=== PATIENT | female | born 1945 | race Caucasian/White ===

== ENCOUNTER 2017-10-12 11:30 | Outpatient (CLI) | payer MEDICARE ==
[~2017-10-12] VITALS: Ht 157.5 cm; Wt 62.7 kg
--- NOTE | ~2017-10-12 | HEMODYNAMI ---
PATIENT:MELL ALFARO MEDICAL RECORD: [id number] : 49 LOCATION:[facility] ADMISSION DATE: 10/12/17 Generatedon:10/12/201713:50 Patient name: MELL ALFARO Patient #: [id number] SSN: [id number] : 1945 Date of study: 10/12/2017 Page: Of Hemodynamic Procedure Report Patient Data Patient Demographics Procedure consent was obtained First Name: MELL Gender: Female Last Name: DOMINIC : 1945 Middle Initial: CEASAR Age: 72 year(s) Patient #: [id number] Race: SSN: [id number] Additional ID: [id number] Contact details Address: [address] [place] [address] [address]REET State: [place] City: [place] Zip code: [address] Admission Admission Data Admission Date: 10/12/2017 Admission Time: 11:30 Arrival Date: 10/12/2017 Arrival Time: 13:30 Admit Source: Other Insurance Payor: Medicare Height (in.): 61 BSA: 1.64 (m2) Height (cm.): 154.94 BMI: 27.21 (kg/m2) Weight (lbs.): 144 Weight (kg.): 65.32 Procedure Procedure Types Cath Procedure Diagnostic Procedure [facility] w/Coronaries Sedation Charges Moderate Sedation up to 30 minutes PCI Procedure Coronary Stent Coronary Stent Initial Procedure Description Procedure Date Procedure Date: 10/12/2017 Procedure Start Time: 13:14 Procedure End Time: 13:46 Procedure Staff Name Function Hiren Trent MD Performing Physician Javy Parker RN Nurse Bridget Haider RT Scrub Magdalena Mathews RT Monitor Procedure Data Cath Procedure Fluoroscopy Diagnostic fluoroscopy Total fluoroscopy Time: 5.5 time: 5.5 min min Diagnostic fluoroscopy Total fluoroscopy dose: 818 dose: 818 mGy mGy Contrast Material Contrast Material Type Amount (ml) Isovue 300 127 Entry Location Entry Primary Successful Side Size Upsize Upsize Entry Closure Succes sful Closure Location (Fr) 1 (Fr) 2 (Fr) Remarks Device Remarks Femoral Right 5 Fr 6 Fr Exoseal artery Short Estimated blood loss: 5 ml Procedure Complications No complications Procedure Medications Medication Administration Route Dosage Oxygen etCO2 Nasal cannula 2 l/min Heparin Flush Bag added to field 2 bags (1000units/500ml NS) 0.9% NaCl I.V. ml/hr Radial Cocktail added to field 1 syringe (Verapomil 2mg/Nitro 400mcg/Heparin 1500units) Fentanyl I.V. 50 mcg Versed I.V. 1 mg Fentanyl I.V. 50 mcg Versed I.V. 1 mg Heparin Bolus I.V. 6000 units Nitroglycerin IC/IA I.C. 100 mcg Fentanyl I.V. 50 mcg Brilinta P.O. 180 mg Fentanyl I.V. 50 mcg Hemodynamics Rest BSA: 1.64 (m2) O2 Consumption: Estimated: 157.02 (ml/min) O2 Consumption indexed : Estimated:95.74 (ml/min/m) Heart Rate: 79 (bpm) Pressure Samples Time Site Value (mmHg) Purpose Heart Use Rate(bpm) 13:25 LV 150/47,41 Snapshot 76 13:25 LV 150/-11,4 Snapshot 78 13:25 AO 130/48(82) Pullback 75 13:25 LV 128/-12,-2 Pullback 75 Gradients Valve Time Site 1 Site 2 Mean SEP/DFP Peak To Heart Use (mmHg) (sec/min) Peak Rate (mmHg) (bpm) Aortic 13:25 LV AO 0 7 0 75 128/-12,-2 130/48(82) Calculations Valve P-P Mean Valve Index Valve Source Name Gradient Area Flow (cm2) Aortic 0 0 0 0 Snapshots Pre Cath Intra NCS Post Cath Vital Signs Time Heart Resp SPO2 etCO2 NIBP (mmHg) Rhythm Pain Sedation Rate (ipm) (%) (mmHg) Status Level (bpm) 13:03:04 81 17 96 0 152/81(121) NSR 0 (11) 10(A) , No pain 13:07:22 82 16 97 30.6 146/76(111) NSR 0 (11) 10(A) , No pain 13:11:39 76 17 94 23.8 132/71(104) NSR 0 (11) 10(A) , No pain 13:15:51 77 17 95 34.3 127/72(96) NSR 0 (11) 10(A) , No pain 13:21:00 73 16 92 11.2 131/63(92) NSR 0 (11) 9(A) , No pain 13:25:14 77 17 95 32.8 130/65(100) NSR 0 (11) 9(A) , No pain 13:29:28 78 17 96 33.5 142/65(103) NSR 0 (11) 9(A) , No pain 13:33:44 76 17 96 37.2 144/70(109) NSR 0 (11) 9(A) , No pain 13:38:04 79 17 94 36.5 124/62(96) NSR 0 (11) 9(A) , No pain 13:42:14 80 16 95 35 139/68(104) NSR 0 (11) 9(A) , No pain 13:46:28 81 18 96 30.6 144/75(95) NSR 0 (11) 10(A) , No pain Medications Time Medication Route Dose Verified Delivered Reason Not es Effectiveness by by 13:08:14 Oxygen etCO2 2 l/min Hiren Javy Per physician Nasal Twan Parker RN cannula 13:08:23 Heparin Flush added 2 bags Hiren Javy used for Bag to Twan Parker RN procedure (1000units/500ml field NS) 13:08:29 0.9% NaCl I.V. ml/hr Hiren Javy Per physician Twan Parker RN 13:08:37 Radial Cocktail added 1 Hiren Javy used for (Verapomil to syringe Twan Parker RN procedure 2mg/Nitro field 400mcg/Heparin 1500units) 13:10:42 Fentanyl I.V. 50 mcg Hiren Javy for sedation Twan Parker RN 13:10:49 Versed I.V. 1 mg Hiren Javy for sedation Twan Parker RN 13:17:20 Fentanyl I.V. 50 mcg Hiren Javy for sedation Twan Parker RN 13:24:00 Versed I.V. 1 mg Hiren Javy for sedation Twan Parker RN 13:34:20 Heparin Bolus I.V. 6000 Hiren Javy for units Twan Parker RN anticoagulation 13:34:35 Nitroglycerin I.C. 100 mcg Hiren Hiren for IC/IA Twan Trent MD vasodilation 13:36:05 Fentanyl I.V. 50 mcg Hiren Javy for sedation Tawn Parker RN 13:39:29 Fentanyl I.V. 50 mcg Hiren Javy for sedation Twan Parker RN 13:45:57 Brilinta P.O. 180 mg Hiren Javy for Twan Parker RN antiplatelet therapy Procedure Log Time Note 12:36:01 Diagnostic Cath Status : Elective 12:40:18 Bridget Haidre RT(R) sent for patient. Start room use. 12:40:19 Time tracking: Regular hours (M-F 7:00 - 5:00) 12:40:24 Plan of Care:Hemodynamics will remain stable., Cardiac rhythm will remain stable., Comfort level will be maintained., Respiratory function will remain adequate., Patient/ family verbilizes understanding of procedure., Procedure tolerated without complication., Recovers from procedure without complications.. 12:42:01 Informed consent obtained and on chart 12:42:11 Admit Source: Other 12:42:13 Arrival Date: 10/12/2017 1:30:00 PM 12:42:16 Insurance Payor : Medicare 12:42:23 Patient Height : 61 inches 12:42:26 Patient Weight : 144 lbs 13:01:52 Vital chart was started 13:05:39 ECG and BP/O2 sat monitors applied to patient. 13:05:44 Patient received from Pre/Post Procedure Room to [facility] 2 Alert and oriented. Tansferred to table in Supine position. 13:05:45 Warm blankets applied, and merrick hugger turned on for patient comfort. 13:05:45 Correct patient and procedure confirmed by team. 13:05:46 Baseline sample Acquired. 13:05:50 Rhythm: sinus rhythm 13:05:52 Full Disclosure recording started 13:05:56 H&P Date Dictated: 10/12/2017 Within 30 days and on chart., H&P Addendum completed by physician on day of procedure. (MUST COMPLETE FOR ALL OUTPATIENTS). 13:05:57 Pre-procedure instructions explained to patient. 13:05:58 Pre-op teaching completed and patient verbalized understanding. 13:06:02 Family in waiting room. 13:06:04 Patient NPO since Midnight. 13:06:07 Is the patient allergic to Iodine/contrast media? No. 13:06:08 Was the patient premedicated? No 13:06:11 Is patient on blood thinner?No 13:06:12 Patient diabetic? Yes. 13:06:15 Previous problem with sedation/anesthesia? No ? 13:06:24 Snore? Yes 13:06:33 If diabetic: On Metformin? Yes 13:06:38 If on Metformin: Last Dose? 10/10/2017 13:06:44 Sleep apnea? No 13:06:45 Deviated septum? No 13:06:46 Opens mouth fully? Yes 13:06:46 Sticks out tongue? Yes 13:06:48 Airway obstruction? No ? 13:06:52 Dentures? No ? 13:06:56 Pre procedure: right dorsailis pedis pulse 2+ Normal; easily identifiable; not easily obliterated 13:06:58 Pre procedure: left dorsailis pedis pulse 2+ Normal; easily identifiable; not easily obliterated 13:07:00 Patient pain scale 0/10 ?. 13:07:07 IV patent on arrival in left forearm with 0.9% NaCl at [facility]. 13:07:10 Lab results completed and on chart. 13:07:14 Right Radial & Right Groin area was prepped with chlora-prep and draped in sterile fashion 13:07:15 Alarms reviewed by R. N. 13:07:15 Sharps counted by scrub and verified by R.N. 13:07:17 Physician arrived 13:07:17 --------ALL STOP TIME OUT------ 13:07:18 Final Timeout: patient, procedure, and site verified with staff and physician. All members of the team are in agreement. 13:07:20 Right Radial & Right Groin site verified by team. 13:07:23 Physical assessment completed. ASA score P 2 - A patient with mild systemic disease as per Hiren Trent MD. 13:07:27 Sedation plan: IV Moderate Sedation Medication:Versed, Fentanyl 13:07:43 Use device set Radial Dx or PCI 13:07:44 ACIST Syringe (16957) opened to sterile field. 13:07:45 Medline Cath Pack ([id number]) opened to sterile field. 13:07:45 Bag Decanter (2001S) opened to sterile field. 13:07:45 DIAGNOSTIC WIRE .035 260cm J wire (087406) opened to sterile field. 13:07:46 ACIST Hand Control (47889) opened to sterile field. 13:07:46 ACIST Manifold (09833) opened to sterile field. 13:07:48 MBrace Wrist Support ([id number]) opened to sterile field. 13:07:49 Tegaderm 4 x 4 (1626W) opened to sterile field. 13:07:50 SHEATH 6Fr Prelude Radial ([id number]) opened to sterile field. 13:08:14 Oxygen 2 l/min etCO2 Nasal cannula was administered by Javy Parker RN; Per physician; 13:08:23 Heparin Flush Bag (1000units/500ml NS) 2 bags added to field was administered by Javy Parker RN; used for procedure; 13:08:29 0.9% NaCl ml/hr I.V. was administered by Javy Parker RN; Per physician; 13:08:37 Radial Cocktail (Verapomil 2mg/Nitro 400mcg/Heparin 1500units) 1 syringe added to field was administered by Javy Parker RN; used for procedure; 13:10:42 Fentanyl 50 mcg I.V. was administered by Javy Parker RN; for sedation; 13:10:49 Versed 1 mg I.V. was administered by Javy Parker RN; for sedation; 13:12:55 Procedure started. 13:14:38 Local anesthetic to right radial artery with Lidocaine 2% by Hiren Trent MD.INITIAL ACCESS ONLY 13:16:58 SHEATH 5Fr Prelude ([id number]) opened to sterile field. 13:17:20 Fentanyl 50 mcg I.V. was administered by Javy Parker RN; for sedation; 13:17:20 Local anesthetic to right femoral artery with Lidocaine 2% by Hiren Trent MD.ADDITIONAL ACCESS 13:17:28 A 5 Fr sheath was inserted into the Right Femoral artery 13:18:07 DIAGNOSTIC Multipack 5Fr catheter set (KZ8778) opened to sterile field. 13:18:17 5 Fr jl 4 guide catheter was inserted over the wire 13:18:59 LCA angiography performed. 13:19:02 Injector settings: Ml/sec: 3, Volume: 6, 13:21:43 Catheter removed. 13:22:23 5 Fr 3drc guide catheter was inserted over the wire 13:23:57 RCA angiography performed. 13:24:00 Versed 1 mg I.V. was administered by Javy Parker RN; for sedation; 13:24:00 Injector settings: Ml/sec: 3, Volume: 6, 13:24:08 Catheter removed. 13:24:18 5 Fr pigtail guide catheter was inserted over the wire 13:25:22 LV hemodynamics recorded. 13:25:23 LV gram done using NAIK 13::26 Injector settings: Ml/sec: 5, Volume: 15, 13:25:38 EF : 40 % 13:29:31 Catheter removed. 13:29:33 Proceeding to intervention. 13:30:02 SHEATH 6Fr Prelude ([id number]) opened to sterile field. 13:30:03 INFLATOR Merit BasixCompak (DS7682) opened to sterile field. 13:30:03 BMW 300cm Radcliffe 2 J wire ([id number]) opened to sterile field. 13:30:14 Sheath upsized to a 6 Fr Short. 13:30:57 GUIDE 6FR EBU 3.5 catheter ([id number]) opened to sterile field. 13:31:03 TUBING High Pressure Extension Tubing (Twan) (NH3996F) opened to sterile field. 13:31:45 6 Fr ebu 3.5 guide catheter was inserted over the wire 13:31:51 bmw wire advanced. 13:32:26 Wire advanced across lesion. 13:34:20 Heparin Bolus 6000 units I.V. was administered by Javy Parker RN; for anticoagulation; 13:34:35 Nitroglycerin IC/IA 100 mcg I.C. was administered by Hiren Trent MD; for vasodilation; 13:36:05 Fentanyl 50 mcg I.V. was administered by Javy Parker RN; for sedation; 13:39:29 Fentanyl 50 mcg I.V. was administered by Javy Parker RN; for sedation; 13:42:19 Place stent Inflation Number: 1 A RASHAD OTW 2.5 x 22 stent ([id number]) was prepped and advanced across the Mid LAD. The stent was deployed at 12 MARISA for 0:10 (min:sec). 13:43:21 Stent catheter was removed intact over wire. 13:43:22 Wire removed. 13:43:23 Guide catheter removed. 13:43:37 EXOSEAL 6Fr (EX600) opened to sterile field. 13:44:12 Sheath removed intact; hemostasis achieved with Exoseal to the Right Femoral artery. 13:44:14 Procedure ended.(Physican Out) 13:44:45 Fluoroscopy time 05.50 minutes. 13:44:50 Flurop Dose total: 818 13:44:50 Fluoroscopy dose: 818 mGy 13:44:55 Contrast amount:Isovue 300 127ml. 13:44:56 Sharps counted by scrub and verified by R.N. 13:44:57 Insertion/operative site no bleeding no hematoma. 13:45:01 Post-op/insertion site Right Femoral artery dressed using a 4 x 4 and Tegaderm. 13:45:03 Post right femoral artery:stable 13:45:05 Post Procedure Pulses reassessed and unchanged 13:45:08 Post procedure rhythm: unchanged. 13:45:10 Estimated blood loss: 5 ml 13:45:12 Post procedure instruction explained to patient.Patient verbalizes understanding. 13:45:12 Patient needs reinforcement of post procedure teaching. 13:45:57 Brilinta 180 mg P.O. was administered by Javy Parker RN; for antiplatelet therapy; 13:46:11 Procedure type changed to Cath procedure, Diagnostic procedure, LHC, LHC w/Coronaries, Sedation Charges, Moderate Sedation up to 30 minutes, PCI procedure, Coronary Stent, Coronary Stent Initial 13:46:13 Procedure and supply charges have been captured, reviewed, submitted and are correct. 13:46:17 Procedure Complication : No complications 13:46:19 Vital chart was stopped 13:46:19 See physician's report for complete and final results. 13:46:24 Report given to Pre/Post Procedure Room. 13:46:27 Patient transfered to Pre/Post Procedure Room with Stretcher. 13:46:29 Procedure ended. 13:46:29 Full Disclosure recording stopped 13:46:42 ACC-PCI Only Patient was given prescriptions, or instructed by Hiren Trent MD to start/continue the following medications upon discharge: Plavix 13:46:44 End room use (Document Last) Intervention Summary Intervention Notes Time ActionType Lesion and Equipment Action# Pressure Duration Attributes Used 13:42:19 Place stent Mid LAD RASHAD OTW 2.5 1 12 00:10 x 22 stent ([id number]) Device Usage Item Name Manufacture Quantity Catalog Number Hospital Part Current M inimal Lot# / Charge Number Stock Stock Serial# Code ACIST Syringe Acist 1 47415 252508 236914 303276 2 0 (03890) Medical Systems Inc Medline Cath Cardinal 1 [id number] 781826 78415 792169 5 Pack Health ([id number]) Bag Decanter Microtek 1 2001S 515756 53869 984070 5 () Medical Inc. DIAGNOSTIC WIRE St Charan 1 603825 571506 236950 349849 3 0 .035 260cm J wire (189145) ACIST Hand Acist 1 08862 736735 297734 362613 5 Control (50551) [employer] Systems Inc ACIST Manifold Acist 1 21259 982120 804747 883740 5 (24054) Medical Systems Inc MBrace Wrist Advanced 1 140-0250-00 840874 28882 866679 5 Support Vascular ([id number]) Dynamics Tegaderm 4 x 4 3M 1 1626W 996568 289752 440303 5 (1626W) SHEATH 6Fr Merit 1 [id number] 346670 344609 124149 5 Prelude Radial Medical ([id number]) SHEATH 5Fr Merit 1 [id number] 512186 106396 904062 5 Prelude Medical ([id number]) DIAGNOSTIC Cardinal 1 [id number] 761410 28891 733754 3 0 Multipack 5Fr Health catheter set (KK8044) SHEATH 6Fr Merit 1 [id number] 872241 407753 714734 5 Prelude Medical ([id number]) INFLATOR Merit Merit 1 PX2581 668893 341841 543241 1 5 Basixwuaki.tv Medical (HB3858) BMW 300cm Steele 1 [id number] 572329 867526 502398 5 Radcliffe 2 J Vascular wire (8434191T) GUIDE 6FR EBU Medtronic 1 [id number] 598479 80276 532183 3 3.5 catheter (SY3SIS55) TUBING High Merit 1 [id number] 634186 59446 031699 1 0 Pressure Medical Extension Tubing (Trent) ([id number]) RASHAD OTW 2.5 x Medtronic 1 [id number] 435374 37159 163096 5 [id number] 22 stent ([id number]) EXOSEAL 6Fr Cardinal 1 EX600 167138 635528 020429 1 0 (EX600) Health Signature Audit [place] Stage Time Signature Unsigned Intra-Procedure 10/12/2017 Magdalena Mathews 1:50:35 PM RT(R) Signatures Monitor : Magdalena Mathews RT Signature : Date : Time : [id number] [place] [address]
[2017-10-12] MEDS ORDERED: PRAVASTATIN SOD10 MG PO (12:07)
[2017-10-12] MEDS ORDERED: ALENDRONATE SOD70 MG PO (12:07)
[2017-10-12] MEDS ORDERED: CYCLOBENZAPRINE10 MG PO (12:08)
[2017-10-12] MEDS ORDERED: COREG 3.1253.125 MG PO (12:08)
[2017-10-12] MEDS ORDERED: LISINOPRIL2.5 MG PO (12:08)
[2017-10-12] MEDS ORDERED: GLUCOPHAGE500 MG PO (12:09)
[2017-10-12] MEDS ORDERED: PLAQUENIL200 MG PO (12:09)
[2017-10-12 12:17] VITALS: BP 154/68; Ht 157.5 cm; Wt 62.7 kg
[2017-10-12 12:34] LABS: BASOPHILS 0.2 % (0-2); EOSINOPHILS 0.9 % (0-7); HEMATOCRIT 39.8 % (36.0-48.0); IMMATURE GRANULOCYTES 0.2 % (0-5); LYMPHOCYTES 32.5 % (15-50); MCH 27.9 pg (26.0-34.0); MCHC 32.7 g/dL (31.0-37.0); MCV 85.4 fL (80.0-100.0); MEAN PLATELET VOLUME 9.6 fL (7.4-10.4); MONOCYTES 7.7 % (2-11); NEUTROPHILS 58.5 % (40-80); PLATELET COUNT 270 10x3/uL (130-400); RBC 4.66 10x6/uL (4.00-5.40); RDW 16.1 % (11.5-14.5); WBC 4.5 10x3/uL (4.8-10.8)
[2017-10-12 12:43] LABS: CALC OSMOLALITY 284 mosm/kg (275-300); CALCIUM 9.3 mg/dL (8.5-10.1); CARBON DIOXIDE 29.1 mmol/L (21.0-32.0); CHLORIDE - SERUM 105 mmol/L (98-107); CREATININE - SERUM 0.8 mg/dL (0.6-1.3); GLUCOSE 126 mg/dL (74-106); POTASSIUM - SERUM 4.5 mmol/L (3.5-5.1); SODIUM 141 mmol/L (136-145); UREA NITROGEN 17 mg/dL (7-18); eGFR NON AFRICAN AMERICAN 75 mL/min (90-120)
[2017-10-12] MEDS ORDERED: BRILINTA90 MG PO (14:12)
== END 2017-10-12 18:25 | disposition home or self-care (01) ==
LOC: D.CATH 11:30
PROVIDERS: Internal Medicine Cardiovascular Disease
DX: I25.119 Atherosclerotic heart disease of native coronary artery with unspecified angina pectoris (principal); Z01.812 Encounter for preprocedural laboratory examination
CPT/HCPCS: 93458; C9600

== ENCOUNTER → 2019-01-17 10:14 | Outpatient (CLI) | payer MEDICARE ==
[2017-10-12 12:17] VITALS: BMI 25.3
[~2019-01-17 10:14] MED LIST: ALENDRONATE SOD70 MG PO; BRILINTA90 MG PO; COREG 3.1253.125 MG PO; CYCLOBENZAPRINE10 MG PO; GLUCOPHAGE500 MG PO; LISINOPRIL2.5 MG PO; PLAQUENIL200 MG PO; PRAVASTATIN SOD10 MG PO
== END | disposition home or self-care (01) ==
LOC: D.HCCECHO 10:14 → D.HCCARDIO 10:30 → D.HCCECHO 10:30
PROVIDERS: ATTEND Internal Medicine Cardiovascular Disease
DX: I25.10 Atherosclerotic heart disease of native coronary artery without angina pectoris (principal)

== ENCOUNTER → 2020-07-25 08:53 | Outpatient (CLI) | payer MEDICARE ==
[2017-10-12 12:17] VITALS: BMI 25.3
== END | disposition home or self-care (01) ==
LOC: D.HCCECHO 08:53
PROVIDERS: ATTEND Internal Medicine Cardiovascular Disease
DX: I34.0 Nonrheumatic mitral (valve) insufficiency (principal)